=== PATIENT | female | born 1930 | race Caucasian/White ===

== ENCOUNTER 2017-09-28 01:05 | Inpatient (IN) | payer OTHER, MEDICARE ==
[~2017-09-28] VITALS: Ht 154.9 cm; Wt 58.1 kg
[~2017-09-28 01:05] MED LIST: AMLODIPINE BES2.5 M1 PO; AMOXICILLIN500 M2 PO; BIOTENE473 ML PO; CALTRATE+D3 PL1 EACH PO; CENTRUM SILVER1 EAC3 PO; DIOVAN160 MG PO; ESTRACE42.5 GM VG; FLUTICASONE PRO16 GM NASB; FUROSEMIDE20 M1 PO; KETOCONAZOLE15 GM TOP; MONTELUKAST SOD10 M1 PO; PAIN RELIEF325 MG PO; PROLIA60 MG/1 ML SC; ZETIA10 M1 PO
--- NOTE | 2017-09-28 12:18 | Admission Core Measures ---
Acute Coronary Syndrome (CM) ACS Core Measures Acute Coronary Syndrome Diagnosis No Congestive Heart Failure (NEW) CHF Core Measures Congestive Heart Failure Diagnosis No Cerebrovascular Accident CVA Core Measures CVA/TIA Diagnosis No Venous Thromboembolism VTE Core Bob (View Protocol) VTE Risk Factors Surgery No Mechanical VTE Prophylaxis d/t N/A MechProphylax Ordered No VTE Pharm Prophylaxis d/t NA PharmProphylax ordered Problem List As ranked by this Provider includes Assessment & Plan 1. Unilateral primary osteoarthritis, right hip HOME MEDS Home Med List Acetaminophen (Pain Relief) 325 MG TABLET 2 TAB PO QPM PAIN (Reported) Amlodipine Besylate 2.5 MG TABLET 1 TAB PO DAILY BP (Reported) Amoxicillin 500 MG CAPSULE 4 CAP PO AD 1 HR PRIOR TO DENTAL APPT. (Reported) Ca Carb/D3/Mag Ox/Installation Engineer/Main/Zn (Caltrate+D3 Plus Mineral Minis) (Unknown Strength ) TABLET (Unknown Dose) PO BID SUPPLEMENT (Reported) Denosumab (Prolia) 60 MG/ML SYRINGE 60 MG SC Q6M OSTEOPOROSIS (Reported) Estradiol (Estrace) 0.01 % CREAM.APPL 1 GM VG WEDSAT HRT - PT HAS PESSARY ( Reported) Ezetimibe (Zetia) 10 MG TABLET 1 TAB PO DAILY CHOLESTEROL (Reported) Fluticasone Propionate 50 MCG/ACTUATION SPRAY.SUSP 1 SPRAY NASB BID ALLERGIES (Reported) Furosemide 20 MG TABLET 1 TAB PO DAILY BP (Reported) Ketoconazole 2 % CREAM..G. 1 SORAIDA TOP PRN SKIN (Reported) Montelukast Sodium 10 MG TABLET 1 TAB PO DAILY ALLERGIES (Reported) Multivit-Min/FA/Lycopen/Lutein (Centrum Silver Tablet) 0.4 MG-300 MCG-250 MCG TABLET 1 TAB PO DAILY SUPPLEMENT (Reported) Saliva Substitute Combo No.9 (Biotene) (Unknown Strength) MOUTHWASH (Unknown Dose) PO QPM MOISTURIZING (Reported) Valsartan (Diovan) 160 MG TABLET 1 TAB PO BID BP (Reported)
[2017-09-28] MEDS ORDERED: DILAUDID2 M1 PO (12:20)
[2017-09-28] MEDS ORDERED: COLACE100 M1 PO (12:20)
[2017-09-28] MEDS ORDERED: PRILOSEC OTC20 M1 PO (12:20)
[2017-09-28] MEDS ORDERED: MIRALAX17 G1 PO (12:20)
--- NOTE | 2017-09-28 12:38 | Patient Discharge Instructions ---
Discharge Instructions General Discharge Information You were seen/treated for: right hip pain related to unilateral primary ostoearthritis You had these procedures: Right total hip replacement Watch for these problems: Increasing pain despite the use of pain medication Increasing redness, warmth or swelling Drainage of any type from incision Inability to bear weight on operative leg Persistent nausea and vomiting Fever greater than 101.5 degrees Do not soak the wound: Yes No bath, but you may shower: Yes Other wound care: Please keep wound clean and dry. No ointments or lotions of any type on or near incision at any time. No exceptions. Your dressing will be changed by your nurse on the second day after your surgery. Daily dry dressing changes are recommended each day thereafter. Do not soak your wound in a bath or pool at any time until otherwise indicated by your surgeon. You may shower, please dry wound immediately after shower with a clean towel. Special Instructions: Eliquis: Dr. Wild and Dr. Kay have discussed your dose of eliquis. It is as follows: 2.5 mg twice a day for 5 days post op. Your last day at this dose will be 2017. On 10/03/2017 you will take 5 mg twice a day and you will continue this for 6 weeks. Constipation: Pain medication can cause constipation. Your surgeon has recommended that you take Colace and miralax each day. You may discontinue this medication if you develop loose stool or diarrhea. If you wish to continue this medication, it is available over the counter. If you are unable to move your bowels after several days, if you are unable to pass gas and are developing bloating, nausea, or vomiting as a result, please contact your doctor. Diet Continue normal diet: Yes Recommended Diet: Regular Activity Full Activity/No Limits: No Activity Self Limited: Yes Pounds, do NOT lift more than: 10 Acute Coronary Syndrome Inclusion Criteria At DC or during hospital stay patient has or had the following: ACS DIAGNOSIS No Discharge Core Measures Meds if any: Prescribed or Continued at Discharge Meds if any: NOT Prescribed or Continued at Discharge Congestive Heart Failure Inclusion Criteria At DC or during hospital stay patient has or had the following: CHF DIAGNOSIS No Discharge Core Measures Meds if any: Prescribed or Continued at Discharge Meds if any: NOT Prescribed or Continued at Discharge Cerebrovascular accident Inclusion Criteria At DC or during hospital stay patient has or had the following: CVA/TIA Diagnosis No Discharge Core Measures Meds if any: Prescribed or Continued at Discharge Meds if any: NOT Prescribed or Continued at Discharge Venous thromboembolism Inclusion Criteria VTE Diagnosis No VTE Type NONE VTE Confirmed by (Test) NONE Discharge Core Measures - Per Current guidelines, there needs to be overlap - treatment for the first 5 days of Warfarin therapy. - If discharged on Warfarin prior to 5 days of - overlap therapy, the patient will need to be - assessed for post discharge needs including - *Post discharge parental anticoagulation - *Warfarin and/or parental anticoagulation education - *Follow up date to check INR post discharge At least 5 days overlap therapy as Inpatient No Meds if any: Prescribed or Continued at Discharge Note: Overlap Therapy is Warfarin and Anticoagulant Meds if any: NOT Prescribed or Continued at Discharge
--- NOTE | 2017-09-28 12:40 | Surgical Discharge Summary ---
Visit Information Visit Dates Admission Date: 09/28/17 Discharge Date: 10/02/17 History of Present Illness Chief Complaint: Right hip pain related to unilateral primary osteoarthritis Surgical History Pertinent Surgical History: non-contributory Review of Systems: See H&P Hospital Course Course Attending Physician: Marcio Wild MD Primary Care Physician: Wade CARTWRIGHT,[facility] Course: Patient was admitted to the hospital for an elective total joint replacement. The procedure was tolerated well and patient was transferred to a general surgical floor. Diet was advanced and tolerated. The patient was evaluated and treated by physical therapy. Mild hypochloremic hyponatremia was noted, and followed post-operatively, with some improvement after changing her diet and adding sodium chloride tablets twice daily. It appears she has a baseline, chronic hyponatremia after reviewing her pre-operative labs. At the time of hospital discharge, the vital signs were stable, neurovascular status was intact , and pain was controlled with the use of oral pain medications. She will be going to the [facility] for further short term rehab. Complications: None Allergies: Coded Allergies: ciprofloxacin (From CIPRO) (EXTREME DIARRHEA 09/19/17) clarithromycin (From BIAXIN) (rash 09/24/17) codeine (RASH/HIVES 09/19/17) Disposition Summary Disposition Principal Diagnosis: Right hip unilateral primary osteoarthritis Additional Diagnosis: None Discharge Disposition: SNF Discharge Instructions General Discharge Information Code Status: Full Code Patient's Diet: Regular, advance as tolerated Patient's Activity: WBAT Follow-Up Instructions/Appts: Follow up with Dr. Wild in 6 weeks from date of surgery. Please call office to arrange &/or confirm this appointment. Recommend follow up lab draw of basic electrolyte panel to follow up the noted hypochloremic hyponatremia Medications at Discharge Discharge Medications: Continue taking these medications: Valsartan (Diovan) 160 MG TABLET 1 Tablet ORAL TWICE DAILY Ezetimibe (Zetia) 10 MG TABLET 1 Tablet ORAL DAILY Montelukast Sodium (Montelukast Sodium) 10 MG TABLET 1 Tablet ORAL DAILY Amlodipine Besylate (Amlodipine Besylate) 2.5 MG TABLET 1 Tablet ORAL DAILY Ca Carb/D3/Mag Ox/Fish Checker/Main/Zn (Caltrate+D3 Plus Mineral Minis) (Unknown Strength ) TABLET Unknown Dose ORAL TWICE DAILY Amoxicillin (Amoxicillin) 500 MG CAPSULE 4 Capsule ORAL As Directed Multivit-Min/FA/Lycopen/Lutein (Centrum Silver Tablet) 0.4 MG-300 MCG-250 MCG TABLET 1 Tablet ORAL DAILY Denosumab (Prolia) 60 MG/ML SYRINGE 60 Milligram Inject into fatty tissue Q6M Estradiol (Estrace) 0.01 % CREAM.APPL 1 Gram VAGINAL WEDSAT Saliva Substitute Combo No.9 (Biotene) (Unknown Strength) MOUTHWASH Unknown Dose ORAL Every night Fluticasone Propionate (Fluticasone Propionate) 50 MCG/ACTUATION SPRAY.SUSP 1 Bath Both sides of nose TWICE DAILY Ketoconazole (Ketoconazole) 2 % CREAM..G. 1 Application On the skin as needed for SKIN Instructions: apply to affected area(s) Acetaminophen (Pain Relief) 325 MG TABLET 2 Tablet ORAL Every night Start taking the following new medications: Furosemide (Furosemide) 20 MG TABLET 20 Milligram ORAL EVERY 48 HOURS (Every 2 days) Qty = 30 No Refills Hydromorphone HCl (Dilaudid) 2 MG TABLET 1-2 Tablet ORAL EVERY 4-6 HOURS NEEDED as needed for PAIN Qty = 36 No Refills Polyethylene Glycol 3350 (Miralax) 17 GRAM POWD.PACK 1 Packet ORAL DAILY Qty = 7 No Refills Instructions: dissolve in water, DISCONTINUE USE IF YOU DEVELOP LOOSE STOOL OR DIARRHEA Docusate Sodium (Colace) 100 MG CAPSULE 1 Capsule ORAL TWICE DAILY Qty = 14 No Refills Instructions: DISCONTINUE USE IF YOU DEVELOP LOOSE STOOL OR DIARRHEA Omeprazole Magnesium (Prilosec Otc) 20 MG TABLET.DR 1 Tablet ORAL DAILY Qty = 30 No Refills Apixaban (Eliquis) 2.5 MG TABLET 1 Tablet ORAL TWICE DAILY Qty = 10 No Refills Instructions: last day for this dose: 10/02, new dose (5mg) to start 10/03 Apixaban (Eliquis) 5 MG TABLET 1 Tablet ORAL TWICE DAILY Qty = 84 No Refills Instructions: start this 10/03/2017 Copies To: Charlie Olvera MD
--- NOTE | 2017-09-28 13:01 | RADIOLOGY REPORT ---
EXAMINATION: XR HIP, RIGHT CLINICAL INFORMATION: Status post right hip replacement COMPARISON: None TECHNIQUE: Two views of the right hip. FINDINGS: There is a total right hip arthroplasty. The femoral head component articulates appropriately with the acetabular component. No periprosthetic lucency or fracture. Postoperative soft tissue gas is present. Calcification seen in the pelvis. There may be contrast within the bladder. IMPRESSION: Total right hip arthroplasty in typical positioning and alignment.
[2017-09-28 13:30] VITALS: BP 128/60
--- NOTE | 2017-09-28 14:55 | Operative Report ---
Operative/Inv Procedure Report Surgery Date: 09/28/17 Name of Procedure: Right total hip replacement Pre-Operative Diagnosis: Primary right hip DJD Post-Operative Diagnosis: Same Estimated Blood Loss: 250 Surgeon/Tire Spotter: Junito CARTWRIGHT,Marcio Mccormick Anesthesia: block Operative/Procedure Note Note: Description of Procedure: The patient was taken to the operating room and positively identified. After induction of spinal anesthesia and administration of appropriate pre-operative antibiotics, the patient was positioned supine on the operating room table and all bony prominences were well padded. After performing a surgical timeout, the right lower extremity was prepped and draped in the usual sterile fashion. A direct anterior approach was made to the right hip. The incision was carried sharply through superficial soft tissues to the level of the fascia. Meticulous hemostasis was maintained with Bovie electocautery. The fascia over the tensor fascia rai muscle was opened sharply and the interval between the TFL and the sartorius was entered bluntly taking care to stay lateral to the lateral femoral cutaneous nerve. Retractors were placed around the femoral neck and the pericapsular fat was identified. The ascending branches of the lateral femoral circumflex vessels were identified and carefully coagulated. The pericapsular fat and anterior capsule were then resected. A napkin ring osteotomy was performed and the remainder of the femoral head was removed without difficulty. Attention was then turned to the acetabulum. After appropriate placement of retractors, the acetabulum was exposed. Soft tissue was cleaned from the acetabular margin and notch. Overhanging osteophytes were removed and the teardrop was exposed. The acetabulum was then sequentially reamed to accept a 50 mm Rose Tritanium hemispherical cluster shell. This was impacted into place in the appropriate position and several screws were used for supplemental fixation. It was then fit with a 32 mm Trident X3 zero degree polyethylene insert. Attention was then turned to the femur. After performing the appropriate ligament releases, the proximal femur was exposed. It was then sequentially broached to accept a size 3 Rose Accolade II stem. This was trialed for leg length and stability. The trial component was removed and the final component was impacted into place. The trunnion was carefully cleaned and fit with a 32 mm, +0 Biolox delta ceramic femoral head. The hip was reduced and put through a full range of motion and found to be stable. The articular space was then irrigated with sterile saline. The periarticular soft tissues were infilitrated with Marcaine. The fascial layer was closed with interrupted #1 vicryl suture and the skin was re-approximated with interrupted 2 -0 vicryl. The skin was closed with a running 3-0 V-Lock suture. Steri-strips and a sterile dressing were applied. The patient was awakened and taken to the recovery room in satisfactory condition.
[2017-09-28 15:25] VITALS: BP 130/70
--- NOTE | 2017-09-28 15:26 | PN- Orthopedic ---
Subjective Subjective: 87 y/o female resting in bed. She ate half her lunch tray and feels well, no nausea. Pain is controlled and she has no complaints Review of Systems: VVS AFEBRILE NO FEVERS OR CHILLS NO NAUSEA OR VOMITING Objective Vital Signs and I&Os Vital Signs Date Time Temp Pulse Resp B/P B/P Pulse O2 O2 Flow FiO2 Mean Ox Delivery Rate 09/28 1525 98.4 73 20 130/70 96 Room Air 09/28 1414 Room Air 09/28 1330 93.7 60 16 128/60 97 Room Air Intake & Output 09/28 1600 09/28 0800 09/28 0000 09/27 1600 09/27 0800 09/27 0000 Intake Total 125 Output Total 0 Balance 125 Intake, IV 75 Intake, Oral 50 Number 0 Bowel Movements Output, Urine 0 Patient 118 lb Weight Weight Bed scale Measurement Method VS AFEBRILE CHEST -CTA SYMMETRIC HEART- RRR WITHOUT MRG ABD - FLAT, NO DISTENTION, NO GUARDING OR REBOUND POS BS BILATERAL LOWER EXTREMITIES SOFT WITHOUT EDEMA SENSORY-MOTOR INTACT FEET WARM RIGHT HIP - INCISION CDI, MILD THIGH EDEMA Assessment/Plan Assessment/Plan POSTOP CHECK 87 Y/O FEMALE OPERATIVE EVENING AFTER RIGHT JONATHAN WITH NO COMPLAINTS ELIQUIS -FOR DVT PROPH 2.5 BID FOR 5 DAYS THEN 5MG BID FOR 6 WEEKS IV TYLENOL DOSE ADJUSTED FOR WEIGHT PER PHARMACY PT -FWBAT WITH ASSISTANCE OF WALKER D/C PLANNING FOR [facility] TOLERATING REGULAR DIET Core Measures Venous Thromboembolism VTE Risk Factors Surgery No Mechanical VTE Prophylaxis d/t N/A MechProphylax Ordered No VTE Pharm Prophylaxis d/t NA PharmProphylax ordered
[2017-09-28] MEDS ORDERED: ELIQUIS2.5 M1 PO (16:41)
[2017-09-28] MEDS ORDERED: ELIQUIS5 M1 PO (16:41)
[2017-09-28 17:27] VITALS: BP 100/60
[2017-09-28 19:34] VITALS: BP 120/60
[2017-09-29 00:02] VITALS: BP 100/64
[2017-09-29 04:11] VITALS: BP 108/62
--- NOTE | 2017-09-29 07:17 | PN- Orthopedic ---
Subjective Subjective: PT IN BED, NO COMPLAINTS. MINIMAL PAIN. HAS NOT BEEN OOB YET. DENEIS PARESTHESIAS, NO CP/SOB OR FEVERS. VOIDING,. TOLERATING DIET Objective Vital Signs and I&Os Vital Signs Date Time Temp Pulse Resp B/P B/P Pulse O2 O2 Flow FiO2 Mean Ox Delivery Rate 09/29 0411 97.3 80 20 108/62 95 Room Air 09/29 0002 97.7 84 20 100/64 96 Room Air 09/28 2021 90 20 120/60 09/28 1934 97.3 90 20 120/60 97 Room Air 09/28 1727 97.1 108 20 100/60 94 Room Air 09/28 1525 98.4 73 20 130/70 96 Room Air 09/28 1414 Room Air 09/28 1330 93.7 60 16 128/60 97 Room Air Intake & Output 09/29 0800 09/29 0000 09/28 1600 09/28 0800 09/28 0000 09/27 1600 Intake Total 950 900 125 Output Total 450 650 0 Balance 500 250 125 Intake, IV 600 300 75 Intake, Oral 350 600 50 Number 0 Bowel Movements Output, Urine 450 650 0 Patient 127 lb 118 lb Weight Weight Bed scale Measurement Method Physical Exam: GEN- NAD RESP- COARSE BREATH SOUNDS CARDIAC- RRR EXT- RIGHT THIGH SOFT, TENDER AROUND INCISION. NO CALF TENDERNESS. DISTAL SENSORY AND MOTOR FUNCTION INTACT Assessment/Plan Assessment/Plan 87YO f SP R JONATHAN POD1. STABLE PT- WBAT W ROLLING WALKER PAIN MANAGEMENT- TRY TO LIMIT NARCOTICS DUE TO AGE REG DIET OOB FU AM LABS DRESSING CHANGE POD2 DVT PPX- [facility] PLANNING FOR [facility] Core Measures Venous Thromboembolism VTE Risk Factors Surgery No Mechanical VTE Prophylaxis d/t N/A MechProphylax Ordered No VTE Pharm Prophylaxis d/t NA PharmProphylax ordered
[2017-09-29 08:11] LABS: ABSOLUTE BASOPHIL COUNT 0.1 /CUMM (0.0-0.2); ABSOLUTE EOSINOPHIL COUNT 0 /CUMM (0.0-0.7); ABSOLUTE GRANULOCYTE CT 15.8 /CUMM (1.4-6.5); ABSOLUTE LYMPH COUNT 1.3 /CUMM (1.2-3.4); ABSOLUTE MONOCYTE COUNT 2.5 /CUMM (0.10-0.60); BASOPHIL % 0.3 % (0.0-2.0); EOSINOPHIL % 0 % (0-5); GRANULOCYTE % 80.4 % (42.2-75.2); HEMATOCRIT 31.8 % (37-47); MEAN CORPUSCULAR HGB 27.8 PG (27.0-31.0); MEAN CORPUSCULAR HGB CONC 33.4 G/DL (33.0-37.0); MEAN CORPUSCULAR VOLUME 83.3 FL (81.0-99.0); MEAN PLATELET VOLUME 7.2 FL (7.4-10.4); PLATELET COUNT 347 /CUMM (130-400); RBC DISTRIBUTION WIDTH 16.6 % (11.5-14.5); RED BLOOD CELL CT 3.82 /CUMM (4.20-5.40); WHITE BLOOD CELL COUNT 19.6 /CUMM (4.8-10.8)
[2017-09-29 11:44] VITALS: BP 102/60
[2017-09-29 14:24] VITALS: BP 102/62
[2017-09-29 18:04] VITALS: BP 110/82
[2017-09-29 22:20] VITALS: BP 108/54
[2017-09-30] VITALS (7 sets, daily range): BP systolic 82–138; BP diastolic 52–78
[2017-09-30] MEDS ORDERED: FUROSEMIDE20 M1 PO (11:57)
[2017-10-01 06:41] VITALS: BP 130/60
[2017-10-01 08:09] LABS: ABSOLUTE BASOPHIL COUNT 0 /CUMM (0.0-0.2); ABSOLUTE EOSINOPHIL COUNT 0 /CUMM (0.0-0.7); ABSOLUTE GRANULOCYTE CT 15.2 /CUMM (1.4-6.5); ABSOLUTE LYMPH COUNT 2.1 /CUMM (1.2-3.4); BASOPHIL % 0 % (0.0-2.0); EOSINOPHIL % 0.2 % (0-5); GRANULOCYTE % 78.4 % (42.2-75.2); MEAN CORPUSCULAR HGB 27.8 PG (27.0-31.0); MEAN CORPUSCULAR HGB CONC 33.6 G/DL (33.0-37.0); MEAN CORPUSCULAR VOLUME 82.7 FL (81.0-99.0); MEAN PLATELET VOLUME 7.4 FL (7.4-10.4); PLATELET COUNT 360 /CUMM (130-400); RBC DISTRIBUTION WIDTH 17.3 % (11.5-14.5); RED BLOOD CELL CT 3.87 /CUMM (4.20-5.40); WHITE BLOOD CELL COUNT 19.4 /CUMM (4.8-10.8)
[2017-10-01 13:29] VITALS: BP 110/70
--- NOTE | 2017-10-01 15:43 | PN- Orthopedic ---
Subjective Subjective: pt in bed, pain controlled, yesterday she said she slept all day due to the pain medication. tolerating diet. voiding. ambulating with pt deneis cp/sob Objective Vital Signs and I&Os Vital Signs Date Time Temp Pulse Resp B/P B/P Pulse O2 O2 Flow FiO2 Mean Ox Delivery Rate 10/01 1329 98.2 100 20 110/70 97 Room Air 10/01 0947 89 102/60 10/01 0943 89 102/60 10/01 0641 97.0 69 20 130/60 96 Room Air 09/30 2215 98.7 81 20 110/60 97 09/30 1959 77 90/50 09/30 1900 98.0 77 20 94/52 96 Room Air Intake & Output 10/01 1600 10/01 0810/01 0000 09/30 1600 09/30 0800 09/30 0000 Intake Total 400 400 380 400 200 Output Total 300 Balance 100 400 380 400 200 Intake, IV 400 400 Intake, Oral 380 400 200 Output, Urine 300 Patient 128 lb Weight Weight Measurement Method Physical Exam: gen- nad resp- clear cardiac-rrr abd- soft,nt ext- right hip dressing changed, incision clean and dry, no signs of infection, no drainage. thigh soft. distal sensory and motor function intact, calves are soft Current Medications: Current Medications Sig/Sharon Start time Last Medication Dose Route Stop Time Status Admin Acetaminophen 325 MG Q4P PRN 09/30 1230 AC PO Acetaminophen 650 MG Q4P PRN 09/30 1230 AC 09/30 PO 9 Amlodipine Besylate 2.5 MG DAILY 09/29 899 AC PO Apixaban 2.5 MG BID 09/29 09 AC 10/01 PO 0942 Bacitracin 1 SORAIDA DAILY 09/30 1221 AC 10/01 TOP 0940 Docusate Sodium 100 MG BID 09/28 2100 AC 10/01 PO 0942 Ezetimibe 10 MG DAILY 09/29 09 AC 10/01 PO 0942 Fluticasone 2 SPRAY DAILY 09/29 899 AC 10/01 Propionate HENNY 0944 Furosemide 20 MG Q48 10/02 899 AC PO Hydromorphone HCl 2 MG Q4P PRN 09/30 1230 AC 10/01 PO 0654 Losartan Potassium 50 MG BID 09/28 2100 AC 09/29 PO 2047 Montelukast Sodium 10 MG AT BEDTIME 09/28 2099 AC 09/30 PO 1958 Nystatin 1 SORAIDA BID 09/29 1145 AC 10/01 TOP 0939 Omeprazole 40 MG DAILY AC 09/29 0700 AC 10/01 PO 0555 Ondansetron HCl 4 MG Q6P PRN 09/28 1400 AC IV Polyethylene Glycol 17 GM DAILY 09/29 0900 AC 10/01 PO 0944 Promethazine HCl 12.5 MG Q6P PRN 09/28 1400 AC IV 10/05 1144 Sodium Chloride 1,000 MG BID 10/01 0941 AC PO Sodium Chloride 1,000 ML Q20H 10/01 0930 DC IV Sodium Chloride 1,000 ML Q20H 09/30 1230 DC 09/30 IV 1505 Results Last 48 Hours of Labs: Laboratory Tests 10/02 619 Chemistry Sodium (137 - 145 mmol/L) 128 L Potassium (3.5 - 5.1 mmol/L) 4.2 Chloride (98 - 107 mmol/L) 92 L Carbon Dioxide (22 - 30 mmol/L) 26 Anion Gap (5 - 16) 10 BUN (7 - 17 mg/dL) 17 Creatinine (0.5 - 1.0 mg/dL) 0.6 Estimated GFR (>60 ml/min) > 60 BUN/Creatinine Ratio (7 - 25 %) 28.3 H Hematology CBC w Diff NO MAN DIFF REQ WBC (4.8 - 10.8 /CUMM) 19.4 H RBC (4.20 - 5.40 /CUMM) 3.87 L Hgb (12.0 - 16.0 G/DL) 10.8 L Hct (37 - 47 %) 32.0 L MCV (81.0 - 99.0 FL) 82.7 MCH (27.0 - 31.0 PG) 27.8 MCHC (33.0 - 37.0 G/DL) 33.6 RDW (11.5 - 14.5 %) 17.3 H Plt Count (130 - 400 /CUMM) 360 MPV (7.4 - 10.4 FL) 7.4 Gran % (42.2 - 75.2 %) 78.4 H Lymphocytes % (20.5 - 51.1 %) 11.0 L Monocytes % (1.7 - 9.3 %) 10.4 H Eosinophils % (0 - 5 %) 0.2 Basophils % (0.0 - 2.0 %) 0 Absolute Granulocytes (1.4 - 6.5 /CUMM) 15.2 H Absolute Lymphocytes (1.2 - 3.4 /CUMM) 2.1 Absolute Monocytes (0.10 - 0.60 /CUMM) 2.0 H Absolute Eosinophils (0.0 - 0.7 /CUMM) 0 Absolute Basophils (0.0 - 0.2 /CUMM) 0 Assessment/Plan Assessment/Plan 87yo female status post right total hip arthroplasty postop 3. Patient is stable. Post-op hyponatremia and hypochloremia Pain managementtry to limit narcotics We will DC IV fluids and add sodium chloride tab twice daily Patient was initially on a low-sodium diet but has been changed to a regular diet due to hyponatremia Follow-up a.m. electrolyte panel Regular home meds DVT prophylaxis Eliquis Physical therapyweightbearing as tolerated with rolling walker Daily dry dressing change [facility] Core Measures Venous Thromboembolism VTE Risk Factors Surgery No Mechanical VTE Prophylaxis d/t N/A MechProphylax Ordered No VTE Pharm Prophylaxis d/t NA PharmProphylax ordered
[2017-10-01 22:11] VITALS: BP 140/70
[2017-10-02 06:09] VITALS: BP 150/70
--- NOTE | 2017-10-02 07:35 | PN- Orthopedic ---
Subjective Subjective: Patient reports her right thigh is swollen. She states her pain is well controlled. She reports ambulating with PT. She is voiding and tolerating her diet. She denies any chest pain, shortness of breath or calf pain. Objective Vital Signs and I&Os Vital Signs Date Time Temp Pulse Resp B/P B/P Pulse O2 O2 Flow FiO2 Mean Ox Delivery Rate 10/02 608 97.8 78 20 150/70 98 Room Air 10/01 2211 98.4 89 20 140/70 96 10/01 195 90 110/60 10/01 1329 98.2 100 20 110/70 97 Room Air 10/01 0947 89 102/60 10/01 0943 89 102/60 Intake & Output 10/02 0000 10/01 1600 10/01 0000 09/30 1600 Intake Total 367 982 3527 400 400 380 Output Total 400 500 300 Balance -260 -400 1160 100 400 380 Intake, IV 200 400 400 Intake, Oral 140 100 960 380 Number 0 Bowel Movements Output, Urine 400 500 300 Physical Exam: Gen - nad Cardiac - S1S2 noted Lungs - CTAB Abd - soft, nontender Ext - R thigh mildly swollen, dressing c/d/i, compartment soft, motor and senosry intact, no edema or calf tenderness B/L Current Medications: Current Medications Sig/Sharon Start time Last Medication Dose Route Stop Time Status Admin Acetaminophen 325 MG Q4P PRN 09/30 1230 AC 10/02 PO 226 Acetaminophen 650 MG Q4P PRN 09/30 1230 AC 09/30 PO 1958 Amlodipine Besylate 2.5 MG DAILY 09/29 899 AC PO Apixaban 2.5 MG BID 09/29 09 AC 10/01 PO 1953 Bacitracin 1 SORAIDA DAILY 09/30 1221 AC 10/01 TOP 0940 Docusate Sodium 100 MG BID 09/28 2100 AC 10/01 PO 1953 Ezetimibe 10 MG DAILY 09/29 09 AC 10/01 PO 941 Fluticasone 2 SPRAY DAILY 09/29 09 AC 10/01 Propionate HENNY 0944 Furosemide 20 MG Q48 10/02 899 AC PO Hydromorphone HCl 2 MG Q4P PRN 09/30 1230 AC 10/01 PO 54 Losartan Potassium 50 MG BID 09/28 2100 AC 10/01 PO 1954 Montelukast Sodium 10 MG AT BEDTIME 09/28 2100 AC 10/01 PO 1953 Nystatin 1 SORAIDA BID 09/29 1145 AC 10/01 TOP 1954 Omeprazole 40 MG DAILY AC 09/29 0700 AC 10/02 PO 05 Ondansetron HCl 4 MG Q6P PRN 09/28 1400 AC IV Patient Medication 1 ED ONE ONE 10/01 1700 DC 10/01 Teaching ED 10/01 1701 1723 Polyethylene Glycol 17 GM DAILY 09/29 0900 AC 10/01 PO 0944 Promethazine HCl 12.5 MG Q6P PRN 09/28 1400 AC IV 10/05 1144 Sodium Chloride 1,000 MG BID 10/01 0941 AC 10/01 PO 195 Sodium Chloride 1,000 ML Q20H 10/01 0930 DC IV Sodium Chloride 1,000 ML Q20H 09/30 1230 DC 09/30 IV 1505 Results Last 48 Hours of Labs: Laboratory Tests 10/02 10/01 0605 0620 Chemistry Sodium (137 - 145 mmol/L) Pending 128 L Potassium (3.5 - 5.1 mmol/L) Pending 4.2 Chloride (98 - 107 mmol/L) Pending 92 L Carbon Dioxide (22 - 30 mmol/L) Pending 26 Anion Gap (5 - 16) Pending 10 BUN (7 - 17 mg/dL) Pending 17 Creatinine (0.5 - 1.0 mg/dL) Pending 0.6 Estimated GFR (>60 ml/min) > 60 BUN/Creatinine Ratio (7 - 25 %) Pending 28.3 H Hematology CBC w Diff NO MAN DIFF REQ WBC (4.8 - 10.8 /CUMM) 19.4 H RBC (4.20 - 5.40 /CUMM) 3.87 L Hgb (12.0 - 16.0 G/DL) 10.8 L Hct (37 - 47 %) 32.0 L MCV (81.0 - 99.0 FL) 82.7 MCH (27.0 - 31.0 PG) 27.8 MCHC (33.0 - 37.0 G/DL) 33.6 RDW (11.5 - 14.5 %) 17.3 H Plt Count (130 - 400 /CUMM) 360 MPV (7.4 - 10.4 FL) 7.4 Gran % (42.2 - 75.2 %) 78.4 H Lymphocytes % (20.5 - 51.1 %) 11.0 L Monocytes % (1.7 - 9.3 %) 10.4 H Eosinophils % (0 - 5 %) 0.2 Basophils % (0.0 - 2.0 %) 0 Absolute Granulocytes (1.4 - 6.5 /CUMM) 15.2 H Absolute Lymphocytes (1.2 - 3.4 /CUMM) 2.1 Absolute Monocytes (0.10 - 0.60 /CUMM) 2.0 H Absolute Eosinophils (0.0 - 0.7 /CUMM) 0 Absolute Basophils (0.0 - 0.2 /CUMM) 0 Assessment/Plan Assessment/Plan 87 F POD 4 s/p R THR with hypochloremia and hyponatremia and expected postop thigh swelling Cont reg diet NaCl tabs bid, may need upon d/c Pain regimen prn, limit narcotics F/u am labs, replete electrolytes prn Home meds on board DVT ppx - alps, eliquis bid OOB w/ PT, WBAT Daily dry dressing change [facility]ticipate [facility] pending labs Core Measures Venous Thromboembolism VTE Risk Factors Surgery No Mechanical VTE Prophylaxis d/t N/A MechProphylax Ordered No VTE Pharm Prophylaxis d/t NA PharmProphylax ordered
[2017-10-02 09:19] LABS: ABSOLUTE BASOPHIL COUNT 0 /CUMM (0.0-0.2); ABSOLUTE EOSINOPHIL COUNT 0.1 /CUMM (0.0-0.7); ABSOLUTE GRANULOCYTE CT 11.5 /CUMM (1.4-6.5); ABSOLUTE LYMPH COUNT 1.1 /CUMM (1.2-3.4); ABSOLUTE MONOCYTE COUNT 1.2 /CUMM (0.10-0.60); BASOPHIL % 0.2 % (0.0-2.0); EOSINOPHIL % 0.6 % (0-5); GRANULOCYTE % 83.1 % (42.2-75.2); HEMATOCRIT 29.5 % (37-47); MEAN CORPUSCULAR HGB 27.5 PG (27.0-31.0); MEAN CORPUSCULAR VOLUME 83.6 FL (81.0-99.0); MEAN PLATELET VOLUME 6.9 FL (7.4-10.4); PLATELET COUNT 390 /CUMM (130-400); RBC DISTRIBUTION WIDTH 16.8 % (11.5-14.5); RED BLOOD CELL CT 3.53 /CUMM (4.20-5.40); WHITE BLOOD CELL COUNT 13.9 /CUMM (4.8-10.8)
[2017-10-02 11:58] VITALS: BP 108/50
== END 2017-10-02 13:28 | DRG 470 ==
LOC: 2NA 01:05 → SDA 01:05 → ENRESERV 12:37 → ENTRNSPT 13:02 → EDTRNSPT 13:19 → EDTRNSPTSTS 13:19 → 2NA 13:38 → CMPTRNSPT 13:57 → 2NA 10-02 13:28
PROVIDERS: Nurse Practitioner; Physician Assistant
PROC: 0SR904A Replacement of Right Hip Joint with Ceramic on Polyethylene Synthetic Substitute, Uncemented, Open Approach (ICD-10-PCS; principal; 2017-09-28)
DX: M16.11 Unilateral primary osteoarthritis, right hip (principal); Z88.1 Allergy status to other antibiotic agents; Z88.5 Allergy status to narcotic agent; I10 Essential (primary) hypertension; Z96.651 Presence of right artificial knee joint; Z90.49 Acquired absence of other specified parts of digestive tract; I35.0 Nonrheumatic aortic (valve) stenosis
CPT/HCPCS: 2NAP; 36592; 73502-RT; 82436; 97110-GO; 97116-GO; 97161-GP; 97530-GO; J0131; J0690; J0735; J1100; J2405; J2550; J3490; J7042

== ENCOUNTER 2017-12-17 09:58 | Inpatient (IN) | payer OTHER, MEDICARE ==
[~2017-12-17] VITALS: Ht 152.4 cm; Wt 49.4 kg
[~2017-12-17 09:58] MED LIST changes: +COLACE100 M1 PO; +DILAUDID2 M1 PO; +ELIQUIS2.5 M1 PO; +ELIQUIS5 M1 PO; +MIRALAX17 G1 PO; +PRILOSEC OTC20 M1 PO
[2017-12-17 11:39] VITALS: BP 100/54
--- NOTE | 2017-12-17 12:36 | History & Physical Pre-Op ---
General Information and HPI MD Statement: I have seen and personally examined BECKY URENA and documented this H&P. The patient is a 87 year old F who presented with a patient stated chief complaint of [R hip pain]. Source of Information: patient, family, old records Exam Limitations: no limitations History of Present Illness: This is a very pleasant 87-year-old female who underwent a right total hip arthroplasty on 09/28/[address] Marico Wild for right hip osteoarthritis, sustained a fall out of bed last evening while at her assisted living facility onto her right side and sustained a right hip periprosthetic fracture. She was transferred to [facility] initially and admitted overnight, this morning, Dr. Wild was contacted and requested the patient be transferred to [facility] for surgical fixation. Patient was doing well postoperatively in regards to her hip , she is ambulating well and has no pain. Of note, she did have another fall, 2 weeks ago and striking her head requiring laceration repair however sustained no other injuries. Currently she is comfortable and has minimal hip pain, mostly pain when she moves and attempts to ambulate. She denies any other pain or injury. She was seen at by the hospitalist service at [facility] for medical clearance as well prior to her transfer. Allergies/Medications Allergies: Coded Allergies: ciprofloxacin (From CIPRO) (EXTREME DIARRHEA 09/19/17) clarithromycin (From BIAXIN) (rash 09/24/17) codeine (RASH/HIVES 09/19/17) Home Med list Acetaminophen (Pain Relief) 325 MG TABLET 2 TAB PO QPM PAIN (Reported) Amlodipine Besylate 2.5 MG TABLET 1 TAB PO DAILY BP (Reported) Amoxicillin 500 MG CAPSULE 4 CAP PO AD 1 HR PRIOR TO DENTAL APPT. (Reported) Apixaban (Eliquis) 2.5 MG TABLET 1 TAB PO BID anticoagulation last day for this dose: 10/02, new dose (5mg) to start 10/03 Apixaban (Eliquis) 5 MG TABLET 1 TAB PO BID anticoagulation start this 10/03/2017 Ca Carb/D3/Mag Ox/Anode Adjuster/Main/Zn (Caltrate+D3 Plus Mineral Minis) (Unknown Strength ) TABLET (Unknown Dose) PO BID SUPPLEMENT (Reported) Denosumab (Prolia) 60 MG/ML SYRINGE 60 MG SC Q6M OSTEOPOROSIS (Reported) Docusate Sodium (Colace) 100 MG CAPSULE 1 CAP PO BID CONSITPATION DISCONTINUE USE IF YOU DEVELOP LOOSE STOOL OR DIARRHEA Estradiol (Estrace) 0.01 % CREAM.APPL 1 GM VG WEDSAT HRT - PT HAS PESSARY ( Reported) Ezetimibe (Zetia) 10 MG TABLET 1 TAB PO DAILY CHOLESTEROL (Reported) Fluticasone Propionate 50 MCG/ACTUATION SPRAY.SUSP 1 SPRAY NASB BID ALLERGIES (Reported) Furosemide 20 MG TABLET 20 MG PO Q48 BP Hydromorphone HCl (Dilaudid) 2 MG TABLET 1-2 TAB PO Q4-6 PRN PRN PAIN Ketoconazole 2 % CREAM..G. 1 SORAIDA TOP PRN SKIN (Reported) apply to affected area(s) Montelukast Sodium 10 MG TABLET 1 TAB PO DAILY ALLERGIES (Reported) Multivit-Min/FA/Lycopen/Lutein (Centrum Silver Tablet) 0.4 MG-300 MCG-250 MCG TABLET 1 TAB PO DAILY SUPPLEMENT (Reported) Omeprazole Magnesium (Prilosec Otc) 20 MG TABLET.DR 1 TAB PO DAILY GI PROTECTION Polyethylene Glycol 3350 (Miralax) 17 GRAM POWD.PACK 1 PAC PO DAILY CONSTIPATION dissolve in water, DISCONTINUE USE IF YOU DEVELOP LOOSE STOOL OR DIARRHEA Saliva Substitute Combo No.9 (Biotene) (Unknown Strength) MOUTHWASH (Unknown Dose) PO QPM MOISTURIZING (Reported) Valsartan (Diovan) 160 MG TABLET 1 TAB PO BID BP (Reported) Past History Medical History Neurological: NONE EENT: NONE Cardiovascular: hypertension Respiratory: pulmonary fibrosis Gastrointestinal: NONE Hepatic: NONE Renal: NONE Musculoskeletal: falls, fracture, osteoporosis, spinal stenosis Psychiatric: NONE Endocrine: hyponatremia Blood Disorders: NONE Cancer(s): melanoma [employer]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 Assisted Living Smoking Status: Never Smoked Functional Ability ADLs Independent: dressing, eating, toileting, bathing. Ambulation: independent Review of Systems Review of Systems: Review of systems: See HPI, all other systems negative. Constitutional: No chills fever or weight loss HEENT: No visual changes no sore throat no congestion Cardiovascular: No chest pain ,palpitation , orthopnea or ankle swelling Skin: No jaundice no rashes Respiratory: No dyspnea cough sputum or hemoptysis GI: No nausea no vomiting : No dysuria no hematuria Musclulo skeletal: See HPI, right hip pain Neurologic: No numbness no confusion Psych: No stress anxiety or depression,. Heme/endocrine: No bruising no bleeding no polyuria or polydipsia Immunology: No splenectomy or history of AIDS Exam & Diagnostic Data Last 24 Hrs of Vital Signs/I&O Vital Signs Date Time Temp Pulse Resp B/P B/P Pulse O2 O2 Flow FiO2 Mean Ox Delivery Rate 12/17 1139 97.6 69 18 100/54 96 Room Air Intake & Output 12/17 1600 12/17 0800 12/17 0000 Intake Total Output Total Balance Patient 109 lb Weight Weight Reported by Patient Measurement Method Physical Exam: Well-developed well-nourished person in no acute distress Elderly female, looks stated age HEENT: Normal EENT exam, atraumatic Neck: Supple, no lymphadenopathy, normal range of motion without pain or tenderness Cardiovascular: Regular rate and rhythms no murmurs, normal JVP Respiratory: Chest nontender. No respiratory distress. Breath sounds clear to auscultation bilaterally Extremity: No edema, no calf tenderness to palpation, normal and equal pulses. Right hip: right lower extremity slightly shortened, no significant rotational deformity, mild swelling at the right hip, joint tenderness to the anterior proximal thigh region, increased pain with range of motion. Neurovascularly intact distally. No calf pain. Neuro: Alert oriented x3, Skin: No appreciable rash on exposed skin, skin is warm and dry. Psych: Mood and affect is normal, memory and judgment is normal. Last 24 Hrs of Labs/Mark: Pertinent abnormal lab values from blood work done at [facility] last evening shows a hemoglobin of 9 and a sodium of 130 Assessment/Plan Assessment/Plan: This is an 87-year-old female approximately 12 weeks status post right total hip arthroplasty who unfortunately sustained a mechanical fall out of bed and suffered a right hip periprosthetic femur fracture. She will be admitted to the orthopedic service and the current plan is to perform a revision surgery on 12/19/17. Medical clearance was performed by the hospitalist at [facility] Dr. Chen Pond, no further medical evaluation recommended per their evaluation, will monitor her sodium and place her on normal saline as her sodium yesterday was 130. Hold aspirin, may start heparin subcu for DVT prophylaxis Regular home meds Type and screen, transfusion may be required preoperatively N.p.o. after midnight on Thursday in anticipation for Thursday surgery Bedrest Pain medication as needed Discussed with Dr. Wild Discussed with family and patient who understands and agrees with plan As Ranked By This Provider Problem List: 1. Periprosthetic fracture around internal prosthetic right hip joint
--- NOTE | 2017-12-17 12:55 | Admission Core Measures ---
Acute Coronary Syndrome (CM) ACS Core Measures Acute Coronary Syndrome Diagnosis No Congestive Heart Failure (NEW) CHF Core Measures Congestive Heart Failure Diagnosis No Cerebrovascular Accident CVA Core Measures CVA/TIA Diagnosis No Venous Thromboembolism VTE Core Bob (View Protocol) VTE Risk Factors Age>40 No Mechanical VTE Prophylaxis d/t N/A MechProphylax Ordered No VTE Pharm Prophylaxis d/t NA PharmProphylax ordered Problem List As ranked by this Provider includes Assessment & Plan 1. Periprosthetic fracture around internal prosthetic right hip joint HOME MEDS Home Med List Acetaminophen (Pain Relief) 325 MG TABLET 2 TAB PO QPM PAIN (Reported) Amlodipine Besylate 2.5 MG TABLET 1 TAB PO DAILY BP (Reported) Amoxicillin 500 MG CAPSULE 4 CAP PO AD 1 HR PRIOR TO DENTAL APPT. (Reported) Apixaban (Eliquis) 2.5 MG TABLET 1 TAB PO BID anticoagulation Apixaban (Eliquis) 5 MG TABLET 1 TAB PO BID anticoagulation Ca Carb/D3/Mag Ox/Apron Trimmer/Main/Zn (Caltrate+D3 Plus Mineral Minis) (Unknown Strength ) TABLET (Unknown Dose) PO BID SUPPLEMENT (Reported) Denosumab (Prolia) 60 MG/ML SYRINGE 60 MG SC Q6M OSTEOPOROSIS (Reported) Docusate Sodium (Colace) 100 MG CAPSULE 1 CAP PO BID CONSITPATION Estradiol (Estrace) 0.01 % CREAM.APPL 1 GM VG WEDSAT HRT - PT HAS PESSARY ( Reported) Ezetimibe (Zetia) 10 MG TABLET 1 TAB PO DAILY CHOLESTEROL (Reported) Fluticasone Propionate 50 MCG/ACTUATION SPRAY.SUSP 1 SPRAY NASB BID ALLERGIES (Reported) Furosemide 20 MG TABLET 20 MG PO Q48 BP Hydromorphone HCl (Dilaudid) 2 MG TABLET 1-2 TAB PO Q4-6 PRN PRN PAIN Ketoconazole 2 % CREAM..G. 1 SORAIDA TOP PRN SKIN (Reported) Montelukast Sodium 10 MG TABLET 1 TAB PO DAILY ALLERGIES (Reported) Multivit-Min/FA/Lycopen/Lutein (Centrum Silver Tablet) 0.4 MG-300 MCG-250 MCG TABLET 1 TAB PO DAILY SUPPLEMENT (Reported) Omeprazole Magnesium (Prilosec Otc) 20 MG TABLET.DR 1 TAB PO DAILY GI PROTECTION Polyethylene Glycol 3350 (Miralax) 17 GRAM POWD.PACK 1 PAC PO DAILY CONSTIPATION Saliva Substitute Combo No.9 (Biotene) (Unknown Strength) MOUTHWASH (Unknown Dose) PO QPM MOISTURIZING (Reported) Valsartan (Diovan) 160 MG TABLET 1 TAB PO BID BP (Reported)
--- NOTE | 2017-12-17 13:31 | Patient Discharge Instructions ---
Discharge Instructions General Discharge Information You were seen/treated for: right hip periprosthetic fracture You had these procedures: right total hip revision for periprosthetic fracture Watch for these problems: fever over 100.4 redness and swelling around wound drainage from wound chest pain or shortness of breath No bath, but you may shower: Yes Other wound care: daily dry dressing change keep incision clean and dry Diet Continue normal diet: Yes Activity Activity Self Limited: Yes Activity Limited to: Weight bear as tolerated (WITH ROLLING WALKER) Acute Coronary Syndrome Inclusion Criteria At DC or during hospital stay patient has or had the following: ACS DIAGNOSIS No Discharge Core Measures Meds if any: Prescribed or Continued at Discharge Meds if any: NOT Prescribed or Continued at Discharge Congestive Heart Failure Inclusion Criteria At DC or during hospital stay patient has or had the following: CHF DIAGNOSIS No Discharge Core Measures Meds if any: Prescribed or Continued at Discharge Meds if any: NOT Prescribed or Continued at Discharge Cerebrovascular accident Inclusion Criteria At DC or during hospital stay patient has or had the following: CVA/TIA Diagnosis No Discharge Core Measures Meds if any: Prescribed or Continued at Discharge Meds if any: NOT Prescribed or Continued at Discharge Venous thromboembolism Inclusion Criteria VTE Diagnosis No VTE Type NONE VTE Confirmed by (Test) NONE Discharge Core Measures - Per Current guidelines, there needs to be overlap - treatment for the first 5 days of Warfarin therapy. - If discharged on Warfarin prior to 5 days of - overlap therapy, the patient will need to be - assessed for post discharge needs including - *Post discharge parental anticoagulation - *Warfarin and/or parental anticoagulation education - *Follow up date to check INR post discharge At least 5 days overlap therapy as Inpatient No Meds if any: Prescribed or Continued at Discharge Note: Overlap Therapy is Warfarin and Anticoagulant Meds if any: NOT Prescribed or Continued at Discharge
[2017-12-17 14:20] LABS: HEMATOCRIT 22.3 % (37-47); MEAN CORPUSCULAR HGB 26.2 PG (27.0-31.0); MEAN CORPUSCULAR HGB CONC 32.9 G/DL (33.0-37.0); MEAN CORPUSCULAR VOLUME 79.6 FL (81.0-99.0); MEAN PLATELET VOLUME 6.4 FL (7.4-10.4); PLATELET COUNT 378 /CUMM (130-400); RBC DISTRIBUTION WIDTH 16.3 % (11.5-14.5); WHITE BLOOD CELL COUNT 9.6 /CUMM (4.8-10.8)
[2017-12-17 14:37] LABS: PT 12.2 SEC (9.4-12.5)
[2017-12-17 14:57] VITALS: BP 102/54
[2017-12-17 22:35] VITALS: BP 120/62
[2017-12-18 06:24] VITALS: BP 144/66
--- NOTE | 2017-12-18 07:44 | PN- Orthopedic ---
See Addendum Subjective Subjective: hd#2 s/p mechanical fall sustaining periprosthetic hip fracture rsting comfortably this am kayla cp, sob, no n+v with diet on bedpain now, does not want hodge cath placed Objective Vital Signs and I&Os Vital Signs Date Time Temp Pulse Resp B/P B/P Pulse O2 O2 Flow FiO2 Mean Ox Delivery Rate 12/19 623 98.7 70 18 144/66 94 Room Air 12/17 2235 98.6 76 18 120/62 93 Room Air 12/17 1924 Room Air 12/17 1457 98.0 73 18 102/54 96 12/17 1139 97.6 69 18 100/54 96 Room Air Intake & Output 12/18 0812/18 0000 12/17 1600 12/17 0812/17 0000 12/16 1600 Intake Total 600 380 700 Output Total 850 402 Balance -250 -22 700 Intake, IV 400 200 100 Intake, Oral 200 180 600 Number 1 1 Bowel Movements Output, Stool 2 Output, Urine 850 400 Patient 109 lb Weight Weight Reported by Patient Measurement Method Physical Exam: cv: rrr lungs: clear abda; soft, +bs ext: distal cms intact thigh soft Assessment/Plan Assessment/Plan orhto stable low h/h yesterday plan f/u am labs regualr diet today npo after midnight revison periprosthetic hip fracture in am Core Measures Venous Thromboembolism VTE Risk Factors Age>40 No Mechanical VTE Prophylaxis d/t N/A MechProphylax Ordered No VTE Pharm Prophylaxis d/t NA PharmProphylax ordered
[2017-12-18 08:18] LABS: HEMATOCRIT 26.6 % (37-47); MEAN CORPUSCULAR HGB 25.9 PG (27.0-31.0); MEAN CORPUSCULAR HGB CONC 32.6 G/DL (33.0-37.0); MEAN CORPUSCULAR VOLUME 79.6 FL (81.0-99.0); MEAN PLATELET VOLUME 6.8 FL (7.4-10.4); PLATELET COUNT 415 /CUMM (130-400); RBC DISTRIBUTION WIDTH 16.4 % (11.5-14.5); RED BLOOD CELL CT 3.34 /CUMM (4.20-5.40); WHITE BLOOD CELL COUNT 11.1 /CUMM (4.8-10.8)
--- NOTE | 2017-12-18 11:00 | RADIOLOGY REPORT ---
EXAMINATION: XR HIP, RIGHT CLINICAL INFORMATION: Periprostatic fracture COMPARISON: 09/28/2017 TECHNIQUE: Two views of the right hip. FINDINGS: The total hip prosthesis is present on the right. There is a linear lucency adjacent to the lesser trochanter which could represent a fracture. This is seen only on one view, but it is suspicious. No other fractures are seen. The acetabular component as well as the femoral component appear to be in good position. IMPRESSION: Fracture of the lesser trochanter..
--- NOTE | 2017-12-18 11:03 | RADIOLOGY REPORT ---
EXAMINATION:\H\ \N\XR CHEST CLINICAL INFORMATION: Preoperative evaluation for cardiopulmonary process. Periprosthetic hip fracture on the right side. COMPARISON: None TECHNIQUE: Frontal view of the chest was obtained. FINDINGS: Cardiomediastinal silhouette is enlarged, likely at least in part a function of the low lung volumes and AP technique. Calcification and tortuosity of the ascending and descending aorta are seen. Low lung volumes are noted with elevation of the right hemidiaphragm. Diffusely increased reticular opacities in the lungs are noted. There is a trace right-sided pleural effusion extending into the right minor fissure. Central vessels are indistinct. No pneumothorax is seen. Diffuse osteopenia is seen with multilevel degenerative changes in the thoracolumbar spine. Mild S-shaped thoracolumbar scoliosis is noted. Right upper quadrant kayden in place from prior cholecystectomy. IMPRESSION: 1. Above findings are suggestive of pulmonary edema with trace right-sided pleural effusion. Close clinical correlation is requested. 2. Low lung volumes. 3. Ectatic and tortuous aorta with moderate atherosclerotic calcifications.
[2017-12-18 14:12] VITALS: BP 120/60
[2017-12-18 22:07] VITALS: BP 120/70
[2017-12-19 04:27] LABS: MEAN CORPUSCULAR HGB 27.1 PG (27.0-31.0); MEAN CORPUSCULAR HGB CONC 33.3 G/DL (33.0-37.0); MEAN CORPUSCULAR VOLUME 81.2 FL (81.0-99.0); MEAN PLATELET VOLUME 6.4 FL (7.4-10.4); PLATELET COUNT 335 /CUMM (130-400); RBC DISTRIBUTION WIDTH 15.9 % (11.5-14.5); WHITE BLOOD CELL COUNT 10.8 /CUMM (4.8-10.8)
[2017-12-19 04:54] LABS: HEMATOCRIT 35.6 % (37-47); RED BLOOD CELL CT 4.39 /CUMM (4.20-5.40)
[2017-12-19 06:03] VITALS: BP 152/62
--- NOTE | 2017-12-19 10:33 | Operative Report ---
Operative/Inv Procedure Report Surgery Date: 12/19/17 Name of Procedure: Right total hip revision Pre-Operative Diagnosis: Right Crosby type BII periprosthetic femur fracture Post-Operative Diagnosis: Same Estimated Blood Loss: 500 Surgeon/Mess Attendant Crew: Junito CARTWRIGHT,STU Price Anesthesia: block Operative/Procedure Note Note: Description of Procedure: The patient was taken to the operating room and positively identified. After induction of spinal anesthesia and administration of appropriate pre-operative antibiotics, the patient was positioned supine on the operating room table and all bony prominences were well padded. After performing a surgical timeout, the right lower extremity was prepped and draped in the usual sterile fashion. Utilizing the previous incision, an extensile direct anterior approach was made to the IT hip. The incision was carried sharply through superficial soft tissues to the level of the fascia. Meticulous hemostasis was maintained with Bovie electocautery. The fascia over the tensor fascia rai muscle was opened sharply and the interval between the TFL and the sartorius was entered bluntly taking care to stay lateral to the lateral femoral cutaneous nerve. Upon entering the interval, a large hematoma was encountered. This was evacuated. Quite a bit of scar tissue had developed as well as some heterotopic ossification anterior to the proximal aspect of the femur. Scar and heterotopic bone were resected with the use of Bovie cautery. Exposure continued until the hip could be dislocated and the femoral head and stem were removed without difficulty. Mobilization of the proximal femur continued until the full extent of the fracture and fracture fragments could be identified. It was noted that the lesser trochanter was 1 fragment and a large portion of the posterior aspect of the greater trochanter was another fragment. All of these fragments were mobilized. A Dall-Miles cable was placed around the femoral shaft distal to the most distal extension of the original fracture. At this point the canal was prepared to accept a Striker faith modular conical revision stem. The canal was reamed to accept a 16 mm x 155 mm Marinette faith modular conical distal stem. The proximal aspect of the femur was then prepared to accept a 21 mm +10 cone body. This construct was trialed with a +4 head. This yielded excellent range of motion, stability and faith of appropriate leg lengths. The trial cone body was removed and the final cone body was impacted into place. The torque bolt was tightened to specification. The trunnion was cleaned and fit with a 32 mm +4 Biolox delta ceramic femoral head. The hip was then reduced. The fracture fragments were then gathered around the proximal body, and using a cable passed proximal to the lesser trochanter, were reduced to the proximal body. The articular space was then irrigated with sterile saline. The periarticular soft tissues were infilitrated with Marcaine. The fascial layer was closed with interrupted #1 vicryl suture and the skin was re-approximated with interrupted 2 -0 vicryl. A medium Hemovac drain was left in the intra-articular space. The skin was closed with kayden. Sterile dressings were applied, the patient was awakened, and taken to the recovery room in satisfactory condition.
--- NOTE | 2017-12-19 11:10 | PN- Student ---
Ely Camargo 12/19/17 1108: Subjective Subjective: Post-op progress note: Pt s/p revision periprosthetic hip fx seen at bedside post-op. Comfortable, alert and resting in bed. Pt reports 8-9/10 pain at incision site but no where else. Given 2 tabs of extra strength tylenol. Pt has no other complaints and ready for dinner. Voiding well through catheter. Ambulating w/ walker down the hallway with PT. Demonstrated IS use. Pt denies chest pain, SOB, nausea, vomitting, fever, or chills. Objective Objective: Intake & Output 12/19 1600 12/19 0800 12/19 0000 12/18 1600 12/18 0800 12/18 0000 Intake Total 448 835 9941 600 380 Output Total 1092 853 1857 850 402 Balance -1300 -160 -350 -250 -22 Intake, Blood 300 Product Intake, IV 400 400 150 400 200 Intake, Oral 240 800 200 180 Number 1 1 1 Bowel Movements Output, Stool 2 Output, Urine 4421 844 4382 850 400 Laboratory Tests 12/19/17 0400: Anion Gap 7, Estimated GFR > 60, BUN/Creatinine Ratio 28.3 H, CBC w Diff MAN DIFF ORDERED, RBC 4.39, MCV 81.2, MCH 27.1, MCHC 33.3, RDW 15.9 H, MPV 6.4 L, Segmented Neutrophils 65, Band Neutrophils 2, Lymphocytes 21, Monocytes 9, Eosinophils 3, Platelet Estimate ADEQUATE, Normocytic RBCs VERIFIED, Normochromic RBCs VERIFIED PE: Gen: elderly female, AOx4, NAD CV: RRR, S1 and S2 present, 3/6 systolic ejection murmur Resp: respiratory effort, vesicular bs b/l, no w/r/r Abd: NDNT, NABS Ext: insision dressings clean and dry with minimal blood, draining light-bloody fluid at right upper thigh. LE sensation intact b/l, motor 5/5 LLE, 4/5 RLE, +1 b/l pedal edema to the knees. DP pulses +2 b/l. No pain in calves or assymetry. Current Medications Sig/Sharon Start time Last Medication Dose Route Stop Time Status Admin Acetaminophen 1,000 MG Q6H 12/19 1800 AC N/A 1 UNIT IV 12/20 0014 Acetaminophen 0 .STK-MED ONE 12/19 1201 DC IV Acetaminophen 1,000 MG Q6H 12/19 1030 DC 12/19 N/A 1 UNIT IV 12/19 2244 1201 Amlodipine Besylate 2.5 MG DAILY 12/18 0900 AC 12/19 PO 1202 Aspirin Buffered 81 MG BID 12/19 2100 AC PO Calcium Carbonate 500 MG DAILY 12/19 0900 AC 12/19 PO 1201 Calcium Carbonate 500 MG ONCE ONE 12/18 1715 DC 12/18 PO 12/18 1716 1958 Cefazolin Sodium 2 GM IQ8 12/19 1600 AC N/A 1 UNIT IV 12/20 0029 Docusate Sodium 100 MG BID 12/17 2100 AC 12/17 PO 2022 Ezetimibe 10 MG DAILY 12/18 0900 AC 12/19 PO 1202 Fentanyl Citrate 0 .STK-MED ONE 12/19 0723 DC .ROUTE Fluticasone 2 SPRAY DAILY 12/18 0900 AC 12/18 Propionate HENNY 0852 Furosemide 20 MG Q48 12/19 0900 DC PO Furosemide 0 .STK-MED ONE 12/18 2103 DC IV Furosemide 10 MG ONCE ONE 12/19 1999 DC 12/18 IV 12/18 2000 2105 Furosemide 20 MG Q48 12/18 0900 AC 12/18 PO 0852 Hydromorphone HCl 2 MG Q3P PRN 12/17 1145 AC 12/18 PO 2159 Hydromorphone HCl 4 MG Q3P PRN 12/17 1145 AC PO Ketamine HCl 0 .STK-MED ONE 12/19 0724 DC .ROUTE Losartan Potassium 50 MG DAILY 12/18 0900 AC 12/19 PO 1201 Midazolam HCl 0 .STK-MED ONE 12/19 0624 DC .ROUTE Montelukast Sodium 10 MG AT BEDTIME 12/17 2100 AC 12/18 PO 2103 Morphine Sulfate 2 MG Q4P PRN 12/17 1145 AC IV Omeprazole 40 MG DAILY AC 12/18 0700 AC 12/19 PO 1202 Patient Medication 1 ED ONE ONE 12/19 1999 DC 12/18 Teaching ED 12/18 2000 2105 Sodium Chloride 1,000 ML Q20H 12/17 1230 AC 12/19 IV 1233 Tranexamic Acid 0 .STK-MED ONE 12/19 0739 DC IV Assessment/Plan Assessment: Pain management - IV acetaminophen q6 Cont. IV Cefazolin q8 and IVF - NS Check bmp, cbc, and ua post-op for signs of infx, hypoNa, or h/h drop s/p 2x blood tf (12/18) Resume regular diet as tolerated Remove hodge tomorrow OOB and IS Dressing change tomorrow D/c pending assessment D/c plans w/ surg PA Plan: 87 yo female w/ pmhx of breast cancer, HTN, pulmonary fibrosis, macrocytic anemia and osteoporosis s/p periprosthetic R hip fx repair this AM currently stable and pending recovery inpatient Giuseppe Laurent 12/19/17 1340: Assessment/Plan Plan: Patient evaluated in pacu postoperatively. Pain controlled and hungry. Denies numbness, tingling, chest pain, sob. She reports improved breathing after recieving IV lasix last night. Per nursing, urine output 2L. On exam, afebrile, vss, lungs with wheezing, right hip dressing c/d/i with hv in place, moves all extremities, compartment soft, motor and sensory intact. S/p R total hip revision due to periprosthetic right femur fracture who is s/p 2 units PRBC and 10mg IV lasix due to pulmonary edema recovering well. Postop hip xray revealed satisfactory position and alignment of the components of the right total hip arthroplasty. OOB ambualtion with PT, WBAT, cont postop abx Ancef x2, regular diet, IVF, asa 81 bid starting tonight/alps/barry for DVT ppx, home meds on board, TRC, labs in am, d/c hodge in am, dressing change POD2.
[2017-12-19 12:06] VITALS: BP 128/72
--- NOTE | 2017-12-19 12:14 | RADIOLOGY REPORT ---
EXAMINATION: XR HIP, RIGHT CLINICAL INFORMATION: Status post hip replacement. COMPARISON: 12/18/2017 TECHNIQUE: Two views of the right hip. FINDINGS: The femoral head prosthesis is well centered within the acetabular cup which is stabilized by superior screws. There are fixation cables in the intertrochanteric and subtrochanteric region. The lesser trochanteric fragment is in anatomic position. The revised femoral component has a long stem, and the tip of the stem is well-positioned within the medullary cavity of the mid femoral diaphysis. Drainage tube of the hip. Multiple skin kayden lateral to the hip. IMPRESSION: Satisfactory position and alignment of the components of the right total hip arthroplasty (status post revision of the femoral component).
[2017-12-19 22:20] VITALS: BP 100/60
[2017-12-20 06:20] VITALS: BP 134/58
[2017-12-20 10:30] LABS: HEMATOCRIT 34.1 % (37-47); MEAN CORPUSCULAR HGB CONC 32.5 G/DL (33.0-37.0); MEAN PLATELET VOLUME 7.2 FL (7.4-10.4); PLATELET COUNT 336 /CUMM (130-400); RBC DISTRIBUTION WIDTH 16.5 % (11.5-14.5); RED BLOOD CELL CT 4.11 /CUMM (4.20-5.40)
[2017-12-20 10:38] LABS: WHITE BLOOD CELL COUNT 16.3 /CUMM (4.8-10.8)
--- NOTE | 2017-12-20 11:02 | PN- Orthopedic ---
Subjective Subjective: Patient alert and oriented, pain controlled feels well, tolarating POs Objective Vital Signs and I&Os Vital Signs Date Time Temp Pulse Resp B/P B/P Pulse O2 O2 Flow FiO2 Mean Ox Delivery Rate 12/20 0808 74 134/58 12/20 0807 74 134/58 12/20 0620 98.4 74 16 134/58 97 Room Air 12/19 2220 98.3 93 20 100/60 95 12/19 1600 Room Air 12/19 1206 97.8 68 18 128/72 96 Room Air Room Air 12/19 1202 78 128/72 12/19 1201 78 128/72 Intake & Output 12/20 1600 12/20 0800 12/20 0000 12/19 1600 12/19 0800 12/19 0000 Intake Total 150 240 600 400 640 Output Total 450 508 442 5817 800 Balance -300 -360 50 -1300 -160 Intake, IV 150 200 400 400 Intake, Oral 240 400 240 Number 0 Bowel Movements Output, 50 100 50 Drainage Output, Urine 400 238 008 4755 800 Physical Exam: alert and oriented, comfortable chest- CTA, symmetric heart-RRR abd -soft without distention right hip -dressings CDI thigh with mild edema hemovac -50cc overnight calves soft bilaterally, distal pulses intact Current Medications: Current Medications Sig/Sharon Start time Last Medication Dose Route Stop Time Status Admin Acetaminophen 1,000 MG Q6P PRN 12/20 929 AC N/A 1 UNIT IV Acetaminophen 500 MG Q6P PRN 12/20 0930 AC 12/20 PO 1040 Acetaminophen 1,000 MG Q6H 12/19 1800 DC 12/19 N/A 1 UNIT IV 12/20 0014 2311 Acetaminophen 0 .STK-MED ONE 12/19 1201 DC IV Acetaminophen 1,000 MG Q6H 12/19 1030 DC 12/19 N/A 1 UNIT IV 12/19 2244 1201 Amlodipine Besylate 2.5 MG DAILY 12/18 09 AC 12/20 PO 08 Aspirin Buffered 81 MG BID 12/19 2100 AC 12/20 PO 08 Calcium Carbonate 500 MG DAILY 12/19 09 AC 12/20 PO 08 Cefazolin Sodium 2 GM IQ8 12/19 1600 DC 12/19 N/A 1 UNIT IV 12/20 0029 2311 Docusate Sodium 100 MG BID 12/17 2100 AC 12/17 PO 202 Ezetimibe 10 MG DAILY 12/18 0900 AC 12/20 PO 0808 Fluticasone 2 SPRAY DAILY 12/18 0900 AC 12/20 Propionate HENNY 0808 Furosemide 20 MG Q48 12/18 09 AC 12/20 PO 0807 Hydromorphone HCl 2 MG Q3P PRN 12/17 1145 AC 12/19 PO 1332 Hydromorphone HCl 4 MG Q3P PRN 12/17 1145 AC 12/20 PO 0332 Losartan Potassium 50 MG DAILY 12/18 09 AC 12/20 PO 0808 Montelukast Sodium 10 MG AT BEDTIME 12/17 2100 AC 12/19 PO 2019 Morphine Sulfate 2 MG Q4P PRN 12/17 1145 AC IV Omeprazole 40 MG DAILY AC 12/18 0700 AC 12/20 PO 0631 Polyethylene Glycol 17 GM DAILY 12/20 1000 AC 12/20 PO 1039 Sodium Chloride 1,000 ML Q20H 12/17 1230 DC 12/19 IV 1233 Results Last 48 Hours of Labs: Laboratory Tests 12/20 12/19 0911 0400 Chemistry Sodium (137 - 145 mmol/L) Pending 132 L Potassium (3.5 - 5.1 mmol/L) Pending 3.6 Chloride (98 - 107 mmol/L) Pending 102 Carbon Dioxide (22 - 30 mmol/L) Pending 23 Anion Gap (5 - 16) Pending 7 BUN (7 - 17 mg/dL) Pending 17 Creatinine (0.5 - 1.0 mg/dL) Pending 0.6 Estimated GFR (>60 ml/min) > 60 BUN/Creatinine Ratio (7 - 25 %) Pending 28.3 H Hematology CBC w Diff MAN DIFF ORDERED MAN DIFF ORDERED WBC (4.8 - 10.8 /CUMM) 16.3 H 10.8 RBC (4.20 - 5.40 /CUMM) 4.11 L 4.39 Hgb (12.0 - 16.0 G/DL) 11.1 L 11.9 L Hct (37 - 47 %) 34.1 L 35.6 L MCV (81.0 - 99.0 FL) 83.0 81.2 MCH (27.0 - 31.0 PG) 27.0 27.1 MCHC (33.0 - 37.0 G/DL) 32.5 L 33.3 RDW (11.5 - 14.5 %) 16.5 H 15.9 H Plt Count (130 - 400 /CUMM) 336 335 MPV (7.4 - 10.4 FL) 7.2 L 6.4 L Segmented Neutrophils (42.2 - 75.2 %) 82 H 65 Band Neutrophils (0.0 - 5.0 %) 2 Lymphocytes (20.5 - 51.1 %) 7 L 21 Monocytes (1.7 - 9.3 %) 10 H 9 Eosinophils (0 - 5.0 %) 1 3 Platelet Estimate (ADEQUATE) VERIFIED BY SMEAR ADEQUATE Normocytic RBCs VERIFIED Normochromic RBCs VERIFIED Poikilocytosis 1+ Anisocytosis 1+ Ovalocytes 1+ Alfred Cells 1+ Assessment/Plan Assessment/Plan POD 1 revision femoral stem with cerclage wiring after periprosthetic fracture right hip advance diet as tolarated d/c IVF OOB with PT WBAT D/C hodge asa and alps for CVT proph D/C planning Core Measures Venous Thromboembolism VTE Risk Factors Age>40 No Mechanical VTE Prophylaxis d/t N/A MechProphylax Ordered No VTE Pharm Prophylaxis d/t NA PharmProphylax ordered
[2017-12-20 14:00] VITALS: BP 140/60
[2017-12-20 22:30] VITALS: BP 112/60
[2017-12-21 06:26] VITALS: BP 102/54
--- NOTE | 2017-12-21 06:54 | PN- Orthopedic ---
Subjective Subjective: pod#2 s/p revision periprosthetic right hip fracture has been up to a chair/ambulate with pt yesterday currently deneis cp, sob, no n+v with diet no major issues overnight deneis cough or urinary complaints Objective Vital Signs and I&Os Vital Signs Date Time Temp Pulse Resp B/P B/P Pulse O2 O2 Flow FiO2 Mean Ox Delivery Rate 12/21 0626 98.3 95 20 102/54 93 Room Air 12/20 2230 99.6 97 20 112/60 95 12/20 1600 96 Room Air 12/20 1400 97.8 99 20 140/60 96 Room Air 12/20 0808 74 134/58 12/20 0807 74 134/58 12/20 0800 97 Room Air Intake & Output 12/21 0800 12/21 0000 12/20 1600 12/20 0800 12/20 0000 12/19 1600 Intake Total 260 140 520 150 240 600 Output Total 400 20 500 450 600 550 Balance -140 120 20 -300 -360 50 Intake, IV 20 20 20 150 200 Intake, Oral 240 120 500 240 400 Number 1 0 Bowel Movements Output, 20 50 50 100 50 Drainage Output, Urine 400 450 400 500 500 Physical Exam: cv: rrr lungs: clear abd: soft, +bs ext: drsg changed, wound c/d/i thigh soft, calves soft NT distal cms intact bilat Assessment/Plan Assessment/Plan ortho stable hyponatremia - ivf fluids d/c'd yesterday leukocytosis - likely surgical response plan f/u am labs, trend sodium and wbc asa/alps for dvt prophylaxis cont oob with pt wbat right le d/c planning to snf Core Measures Venous Thromboembolism VTE Risk Factors Age>40 No Mechanical VTE Prophylaxis d/t N/A MechProphylax Ordered No VTE Pharm Prophylaxis d/t NA PharmProphylax ordered
[2017-12-21 09:16] LABS: HEMATOCRIT 29.5 % (37-47); MEAN CORPUSCULAR HGB 27.2 PG (27.0-31.0); MEAN CORPUSCULAR HGB CONC 33.5 G/DL (33.0-37.0); MEAN CORPUSCULAR VOLUME 81.1 FL (81.0-99.0); PLATELET COUNT 353 /CUMM (130-400); RBC DISTRIBUTION WIDTH 17.2 % (11.5-14.5); RED BLOOD CELL CT 3.64 /CUMM (4.20-5.40); WHITE BLOOD CELL COUNT 12.5 /CUMM (4.8-10.8)
[2017-12-21 13:59] VITALS: BP 142/90
--- NOTE | 2017-12-21 18:18 | PN- Student ---
Assessment/Plan Plan: Kayden removal Kayden from pt right scalp removed today. Approx 10 kayden, no bleeding, patient tolerated well.
[2017-12-21 22:18] VITALS: BP 130/54
[2017-12-22 05:56] VITALS: BP 136/60
[2017-12-22 09:58] LABS: HEMATOCRIT 28.4 % (37-47); MEAN CORPUSCULAR HGB CONC 33.2 G/DL (33.0-37.0); MEAN CORPUSCULAR VOLUME 81.3 FL (81.0-99.0); MEAN PLATELET VOLUME 7.1 FL (7.4-10.4); PLATELET COUNT 392 /CUMM (130-400); RBC DISTRIBUTION WIDTH 17.5 % (11.5-14.5); RED BLOOD CELL CT 3.49 /CUMM (4.20-5.40); WHITE BLOOD CELL COUNT 10.9 /CUMM (4.8-10.8)
[2017-12-22] MEDS ORDERED: ASPIRIN EC81 M1 PO (10:31)
[2017-12-22] MEDS ORDERED: DILAUDID2 M1 PO (10:31)
[2017-12-22] MEDS ORDERED: MIRALAX17 G1 PO (10:31)
[2017-12-22] MEDS ORDERED: PRILOSEC OTC20 M1 PO (10:31)
[2017-12-22] MEDS ORDERED: COLACE100 M1 PO (10:31)
--- NOTE | 2017-12-22 10:39 | Discharge Summary ---
See Addendum Visit Information Visit Dates Admission Date: 12/17/17 Discharge Date: 12/22/17 Hospital Course Course Attending Physician: Marcio Wild MD [facility]: Ms. Gaytan is an 79-year-old female who was admitted for periprosthetic right hip fracture. Taken to the operating room and underwent revision of right periprosthetic hip fracture by Dr. Kimbrough. Tolerated the procedure well and she was transferred back to the floor. Out of bed with physical therapy postop day 1 2 and 3. Also during her hospital stay her hyponatremia was adjusted with fluid restriction began trending back to normal 2 days later. Physical therapy evaluation it was determined that she would need help at home upon discharge. Events hospital stay are otherwise unremarkable. Allergies: Coded Allergies: ciprofloxacin (From CIPRO) (EXTREME DIARRHEA 09/19/17) clarithromycin (From BIAXIN) (rash 09/24/17) codeine (RASH/HIVES 09/19/17) Significant Procedures: Revision right periprosthetic hip fracture Disposition Summary Disposition Principal Diagnosis: Right periprosthetic hip fracture Additional Diagnosis: Hyponatremia Discharge Disposition: home health services Discharge Instructions General Discharge Information Code Status: Full Code Patient's Diet: Regular diet Patient's Activity: May be weightbearing as tolerated right lower extremity and ambulate with walker. Follow-Up Instructions/Appts: Follow-up with Dr. Wild post discharge Call office for temperature greater than 101.5, any wound changes, or increased right hip/leg pain with ambulation. Medications at Discharge Discharge Medications: Continue taking these medications: Valsartan (Diovan) 160 MG TABLET 1 Tablet ORAL TWICE DAILY Comments: NOT GIVEN IN HOSPITAL Ezetimibe (Zetia) 10 MG TABLET 1 Tablet ORAL DAILY Comments: Last Taken: 10/02/17 Time: 8:53 AM Montelukast Sodium (Montelukast Sodium) 10 MG TABLET 1 Tablet ORAL DAILY Comments: Last Taken: 10/01/17 Time: 7:54 PM Amlodipine Besylate (Amlodipine Besylate) 2.5 MG TABLET 1 Tablet ORAL DAILY Comments: NOT GIVEN IN HOSPITAL DUE TO PT BEING HYPOTENSIVE Ca Carb/D3/Mag Ox/Senior Java J2Ee Developer/Main/Zn (Caltrate+D3 Plus Mineral Minis) (Unknown Strength ) TABLET Unknown Dose ORAL TWICE DAILY Comments: NOT GIVEN IN HOSPITAL Multivit-Min/FA/Lycopen/Lutein (Centrum Silver Tablet) 0.4 MG-300 MCG-250 MCG TABLET 1 Tablet ORAL DAILY Comments: NOT GIVEN IN HOSPITAL Denosumab (Prolia) 60 MG/ML SYRINGE 60 Milligram SC Q6M Comments: NOT GIVEN IN HOSPITAL Estradiol (Estrace) 0.01 % CREAM.APPL 1 Gram VAGINAL WEDSAT Comments: NOT GIVEN IN HOSPITAL Saliva Substitute Combo No.9 (Biotene) (Unknown Strength) MOUTHWASH Unknown Dose ORAL Every night Comments: NOT GIVEN IN HOSPITAL Fluticasone Propionate (Fluticasone Propionate) 50 MCG/ACTUATION SPRAY.SUSP 1 Thornton Both sides of nose TWICE DAILY Comments: Last Taken: 10/02/17 Time: 8:53 AM Ketoconazole (Ketoconazole) 2 % CREAM..G. 1 Application On the skin as needed for SKIN Instructions: apply to affected area(s) Comments: NOT GIVEN IN HOSPITAL Acetaminophen (Pain Relief) 325 MG TABLET 2 Tablet ORAL Every night Comments: Last Taken: 10/02/17 Time: 9:12 AM Furosemide (Furosemide) 20 MG TABLET 20 Milligram ORAL EVERY 48 HOURS (Every 2 days) Qty = 30 Comments: Last Taken: 10/02/17 Time: 8:53 AM Hydromorphone HCl (Dilaudid) 2 MG TABLET 1-2 Tablet ORAL EVERY 4-6 HOURS NEEDED as needed for PAIN Qty = 36 This prescription has been renewed Docusate Sodium (Colace) 100 MG CAPSULE 1 Capsule ORAL TWICE DAILY Qty = 14 Instructions: DISCONTINUE USE IF YOU DEVELOP LOOSE STOOL OR DIARRHEA Comments: Last Taken: 10/02/17 Time: 8:53 AM This prescription has been renewed Polyethylene Glycol 3350 (Miralax) 17 GRAM POWD.PACK 1 Packet ORAL DAILY Qty = 7 Instructions: dissolve in water, DISCONTINUE USE IF YOU DEVELOP LOOSE STOOL OR DIARRHEA Comments: Last Taken: 10/02/17 Time: 8:55 AM This prescription has been renewed Omeprazole Magnesium (Prilosec Otc) 20 MG TABLET.DR 1 Tablet ORAL DAILY Qty = 30 This prescription has been renewed Start taking the following new medications: Aspirin (Ecotrin*) 81 MG TABLET.DR 1 Tablet ORAL TWICE DAILY Qty = 60 No Refills Copies To: Marcio Wild MD
[2017-12-22 13:48] VITALS: BP 118/90
[2017-12-22 22:40] VITALS: BP 124/54
[2017-12-23 06:37] VITALS: BP 142/68
--- NOTE | 2017-12-23 08:25 | PN- Orthopedic ---
See Addendum Subjective Subjective: PT SITTING IN BED, MINIMAL HIP PAIN, TOLERATING DIET. vOIDING, +BM THIS MORNING. AMBULATING WITH pt YESTERDYA DENIES CP/SOB,FEVERS Objective Vital Signs and I&Os Vital Signs Date Time Temp Pulse Resp B/P B/P Pulse O2 O2 Flow FiO2 Mean Ox Delivery Rate 12/23 0637 97.9 84 20 142/68 97 Room Air 12/22 2240 98.2 92 20 124/54 96 Room Air 12/22 1348 97.6 96 20 118/90 95 Room Air 12/22 0911 136/60 12/22 0911 136/60 Intake & Output 12/23 1600 12/23 0800 12/23 0000 12/22 1600 12/22 0800 12/22 0000 Intake Total 300 480 240 Output Total 750 800 300 Balance 300 -270 240 -800 -300 Intake, Oral 300 480 240 Number 1 1 Bowel Movements Output, Urine 750 800 300 Physical Exam: GEN-NAD RESP-CLEAR CARDIAC-REGULAR EXT- RIGHT THIGH SOFT, JET RYHTEMA, DRESSING CLEAN AND DRY, DRESSING CHANGED. NO CALF TENDERNESS OR LEG SWELLING. 2+ DP PULSE. NO LEG SHORTENING OR ROTATION Current Medications: Current Medications Sig/Sharon Start time Last Medication Dose Route Stop Time Status Admin Acetaminophen 1,000 MG Q6P PRN 12/20 929 AC N/A 1 UNIT IV Acetaminophen 500 MG Q6P PRN 12/20 0830 AC 12/22 PO 2001 Amlodipine Besylate 2.5 MG DAILY 12/18 899 AC 12/22 PO 910 Artificial Tears 1 GTT Q2 HRS NEEDED PRN 12/22 2115 AC OU Aspirin Buffered 81 MG BID 12/19 2099 AC 12/22 PO 2001 Calcium Carbonate 500 MG DAILY 12/19 899 AC 12/22 PO 910 Docusate Sodium 100 MG BID 12/17 2100 AC 12/17 PO 2021 Ezetimibe 10 MG DAILY 12/18 899 AC 12/22 PO 910 Fluticasone 2 SPRAY DAILY 12/18 899 AC 12/22 Propionate HENNY 11 Hydromorphone HCl 2 MG Q3P PRN 12/17 1145 AC 12/20 PO 2048 Hydromorphone HCl 4 MG Q3P PRN 12/17 1145 AC 12/20 PO 033 Losartan Potassium 50 MG DAILY 12/18 899 AC 12/22 PO 09 Montelukast Sodium 10 MG AT BEDTIME 12/17 2100 AC 12/22 PO 2001 Morphine Sulfate 2 MG Q4P PRN 12/17 1145 AC IV Omeprazole 40 MG DAILY AC 12/18 0700 AC 12/23 PO 0559 Polyethylene Glycol 17 GM DAILY 12/20 1000 AC 12/22 PO 09 Results Last 48 Hours of Labs: Laboratory Tests 12/22 0631 Chemistry Sodium (137 - 145 mmol/L) 133 L Potassium (3.5 - 5.1 mmol/L) 4.3 Chloride (98 - 107 mmol/L) 103 Carbon Dioxide (22 - 30 mmol/L) 23 Anion Gap (5 - 16) 7 BUN (7 - 17 mg/dL) 28 H Creatinine (0.5 - 1.0 mg/dL) 0.6 Estimated GFR (>60 ml/min) > 60 BUN/Creatinine Ratio (7 - 25 %) 46.7 H Hematology CBC w Diff MAN DIFF ORDERED WBC (4.8 - 10.8 /CUMM) 10.9 H RBC (4.20 - 5.40 /CUMM) 3.49 L Hgb (12.0 - 16.0 G/DL) 9.4 L Hct (37 - 47 %) 28.4 L MCV (81.0 - 99.0 FL) 81.3 MCH (27.0 - 31.0 PG) 27.0 MCHC (33.0 - 37.0 G/DL) 33.2 RDW (11.5 - 14.5 %) 17.5 H Plt Count (130 - 400 /CUMM) 392 MPV (7.4 - 10.4 FL) 7.1 L Segmented Neutrophils (42.2 - 75.2 %) 77 H Lymphocytes (20.5 - 51.1 %) 9 L Monocytes (1.7 - 9.3 %) 11 H Eosinophils (0 - 5.0 %) 3 Platelet Estimate (ADEQUATE) VERIFIED BY SMEAR Normocytic RBCs VERIFIED Normochromic RBCs VERIFIED Assessment/Plan Assessment/Plan 87YO F SP PERIPROSTHETIC FRACTUREFROM FALL, POD4 FROM RIGHT TOTAL HIP REVISION. STABLE. HYPONATREMIA RESOLVED WITH FLUID RESTRICTION. PAIN MANAGEMENT PT-WBAT DVT PPX- ASA81 BID DC PLANNING- TO GO HOME TODAY WITH [facility] FU WITH DR CASEY IN 6 WKS Core Measures Venous Thromboembolism VTE Risk Factors Age>40 No Mechanical VTE Prophylaxis d/t N/A MechProphylax Ordered No VTE Pharm Prophylaxis d/t NA PharmProphylax ordered
[2017-12-23 08:41] VITALS: BP 142/68
[2017-12-24] MEDS ORDERED: DILAUDID2 M1 PO (09:45)
== END 2017-12-23 14:50 | disposition home health service (06) | DRG 467 ==
LOC: 2NB 09:58 → 2NA 11:33 → ENTRNSPT 12-19 11:30 → EDTRNSPTSTS 12-19 11:35 → EDTRNSPT 12-19 11:35 → CMPTRNSPT 12-19 12:47 → ENPENDDIS 12-23 08:29 → ENTRNSPT 12-23 14:30 → EDTRNSPT 12-23 14:48 → EDTRNSPTSTS 12-23 14:48 → 2NA 12-23 14:50 → CMPTRNSPT 12-23 14:57
PROVIDERS: Physician Assistant; Physician Assistant Surgical
PROC: 30233N1 Transfusion of Nonautologous Red Blood Cells into Peripheral Vein, Percutaneous Approach (ICD-10-PCS; principal; 2017-12-18)
PROC: 0SR904A Replacement of Right Hip Joint with Ceramic on Polyethylene Synthetic Substitute, Uncemented, Open Approach (ICD-10-PCS; 2017-12-19)
PROC: 0SP90JZ Removal of Synthetic Substitute from Right Hip Joint, Open Approach (ICD-10-PCS; 2017-12-19)
PROC: 0SC90ZZ Extirpation of Matter from Right Hip Joint, Open Approach (ICD-10-PCS; 2017-12-19)
DX: M97.01XA Periprosthetic fracture around internal prosthetic right hip joint, initial encounter (principal); E87.1 Hypo-osmolality and hyponatremia; J81.1 Chronic pulmonary edema; I10 Essential (primary) hypertension; W06.XXXA Fall from bed, initial encounter; Z91.81 History of falling; S01.01XD Laceration without foreign body of scalp, subsequent encounter; W19.XXXD Unspecified fall, subsequent encounter; M48.00 Spinal stenosis, site unspecified; M81.0 Age-related osteoporosis without current pathological fracture; J84.10 Pulmonary fibrosis, unspecified; D64.9 Anemia, unspecified; Z88.1 Allergy status to other antibiotic agents; Z88.5 Allergy status to narcotic agent; Z79.01 Long term (current) use of anticoagulants; Z79.891 Long term (current) use of opiate analgesic; Z79.51 Long term (current) use of inhaled steroids
CPT/HCPCS: 2NAP; 36592; 71045; 73502-RT; 82436; 86920; 87086; 93005; 93010; 97110-GO; 97116-GO; 97161-GP; 97530-GO; J0131; J0690; J0735; J1644; J1940; P9016; Q2036